=== PATIENT | male | born 1985 | race Caucasian/White ===

== ENCOUNTER 2019-10-14 15:49 | Emergency (ER) | payer BC, OTHER, SELFPAY ==
[2019-10-14 16:02] VITALS: BP 152/78; PULSE 75; RESP 16; TEMP 36.7; O2SAT 100
--- NOTE | 2019-10-14 16:08 | ED.GENADULT ---
HPI - General Adult General Chief complaint: Upper Respiratory Infection Stated complaint: Congestion/abd pain/vomiting/fever Time Seen by Provider: 10/14/19 16:08 Source: patient Mode of arrival: ambulatory Limitations: no limitations History of Present Illness HPI narrative: 34-year-old male patient presents to the [facility] with complaints of nausea vomiting for the past 2 to 3 days. Patient states his girlfriend ate some [employer] on Sunday and right afterwards able started having nausea vomiting diarrhea. Patient states that he feels much better today than he has but states he was not feeling 100% this morning and his boss sent him home and requested that he get tested for the flu because he has had an outbreak of the flu at work. Patient denies any fevers that he is aware of but states he has had some sweats the last couple of days. Patient states that his stomach is feeling much better no longer having vomiting or diarrhea. Patient states he is a smoker. Denies getting a flu shot this year. Related Data Home Medications Medication Instructions Recorded Confirmed No Home Medications 10/14/19 10/14/19 Allergies Allergy/AdvReac Type Severity Reaction Status Date / Time Penicillins Allergy Mild HIVES Verified 03/02/17 18:39 Review of Systems Review of Systems: Narrative: CONSTITUTIONAL: Denies fever, positive chills, and sweats. EYES: Denies visual changes, redness, or discharge. ENT: Denies rhinorrhea, congestion, sore throat, or otalgia. CARDIOVASCULAR: Denies chest pain, palpitations, or edema. RESPIRATORY: Denies cough or dyspnea. GASTROINTESTINAL: Denies abdominal pain, positive nausea, denies vomiting, or diarrhea. GENITOURINARY: Denies dysuria or hematuria. SKIN: Denies rash or itching. MUSCULOSKELETAL: Denies back pain, joint pain, or myalgia. NEUROLOGIC: Denies headache, numbness, or weakness. PSYCHIATRIC: Denies anxiety or depression. PMFSH Comments At the time of my signature I agree with nursing past medical history, surgical, social, and family history. There is no relevant family history pertinent to the presenting complaint. Exam Narrative: Exam Narrative: GENERAL: Well-appearing, well-nourished, and in no acute distress. HEAD: Normocephalic, atraumatic. EYES: PERRLA and EOMI. ENT: Nares clear, no rhinorrhea or epistaxis. Mucous membranes moist. Bilateral TMs are clear with no erythema or foreign bodies in the canal. Posterior pharynx with no erythema, tonsillar margin, exudates or lesions present. NECK: Supple. No lymphadenopathy CHEST: Clear to auscultation. No respiratory distress. HEART: Regular rate and rhythm. No murmur heard. Normal peripheral pulses. ABDOMEN: Soft, flat, nondistended. No guarding, rebound tenderness, or rigid. No pulsatilla masses. Bowel sounds present in all four quadrants. No organomegaly. Negative Kendrick?s sign. No periumbicial tenderness. No Supra public tenderness or distension. Good femoral pulses bilaterally. No hernia noted. No scars or surface trauma. EXTREMITIES: Normal range of motion. No edema. SKIN: Warm, dry, no rash. NEURO: No focal deficits. Alert and oriented x3. Course Reevaluation(s) Reevaluation #1: Notify patient that he is negative for influenza. Discussed with him that he can return to work with no restrictions. Discussed with him that this was most likely some type of bad food that he ate considering that both him and his girlfriend had the same symptoms. Discussed with patient that as long as he continues to keep down food and fluid this is reassuring. Discussed with patient if he develops worsening vomiting abdominal pain or super high fevers and he would need to go the ER for further evaluation and treatment. Patient verbalized understanding denies any other questions or concerns at this time. Date: 10/14/19 Time: 16:31 Vital Signs Vital signs: Vital Signs Temperature 36.7 C 10/14/19 16:02 Pulse Rate 75 10/14/19 16:02 Respiratory Ra
== END 2019-10-14 16:40 | disposition home or self-care (01) ==
PROVIDERS: Emergency Provider Nurse Practitioner Family
DX: A08.4 Viral intestinal infection, unspecified (principal); F17.200 Nicotine dependence, unspecified, uncomplicated
CPT/HCPCS: 87804; 99213; G0463

== ENCOUNTER 2019-11-06 10:47 | Emergency (ER) | payer BC, OTHER, SELFPAY ==
--- NOTE | ~2019-11-06 | XR_ITS ---
EXAMINATION: XR forearm RT 2V DATE: 11/06/2019 11:09 INDICATION: Posterior right forearm pain post fall one and a half weeks prior. TECHNIQUE: AP an lateral views of the right forearm were obtained. COMPARISON: none FINDINGS: There is soft tissue swelling with subcutaneous edema at the dorsal aspect of the proximal to mid rig ht forearm. Bone alignment is normal. No fracture. Joint spaces are normal. No right elbow joint effu david. IMPRESSION: 1. Likely contusion at the dorsal aspect of the proximal to mid forearm. No osseous abnormality. Reviewed, dictated and finalized at location A. IMPRESSION: 1. Likely contusion at the dorsal aspect of the proximal to mid forearm. No oss eous abnormality.
[2019-11-06 10:56] VITALS: BP 153/82; PULSE 88; RESP 18; TEMP 36.7; O2SAT 99
--- NOTE | 2019-11-06 11:19 | ED.GENADULT ---
HPI - General Adult General Chief complaint: Extremity Injury, Upper Stated complaint: Right arm injury Time Seen by Provider: 11/06/19 11:20 Source: patient and RN notes reviewed Mode of arrival: ambulatory Limitations: no limitations History of Present Illness HPI narrative: 34-year-old male presents with complaints of tenderness and swelling to the RIGHT forearm for the past 1.5 weeks. Ibuprofen (last at 07:30 this morning). Adam says he was walking upstairs fell and hit arm on a corner of a step. No radiation of pain. Exacerbation factor consist of movement and palpation. The relieving factor is immobility. Dominant hand is RIGHT HAND. No suspected abuse. Denies hitting head or loss of consciousness. Denies syncopal episode, dizziness, or seizure activity. Denies fever or chills. Denies nausea, vomit, and abdominal pain. Tolerating po intake well. Remains active. Some parts of this dictation were generated by voice recognition software and may contain typographical and/or grammatical inaccuracies. Related Data Home Medications Medication Instructions Recorded Confirmed No Home Medications 10/14/19 11/06/19 Allergies Allergy/AdvReac Type Severity Reaction Status Date / Time Penicillins Allergy Mild HIVES Verified 11/06/19 11:03 Review of Systems Review of Systems: Narrative: CONSTITUTIONAL: Denies fever, chills, sweats. EYES: Denies visual changes, redness, discharge. ENT: Denies rhinorrhea, congestion, sore throat, otalgia. CARDIOVASCULAR: Denies chest pain, palpitations, edema. RESPIRATORY: Denies dyspnea, wheezing, cough GASTROINTESTINAL: Denies abdominal pain, nausea, vomiting, diarrhea. GENITOURINARY: Denies dysuria, hematuria, abnormal discharge SKIN: Denies rash or itching. MUSCULOSKELETAL: Denies acute back pain or myalgia. Complains of RT forearm pain and swelling. NEUROLOGIC: Denies numbness, or focal weakness. PSYCHIATRIC: Denies anxiety or depression. All other systems reviewed are negative, except as documented in HPI and below. [facility] Past Medical History Medical History (Updated 11/14/19 @ 07:38 by ARPIT Mcnair) No significant past medical history Surgical History Surgical History (Updated 11/06/19 @ 11:50 by ARPIT Mcnair) History of adenoidectomy History of ankle surgery Right History of tonsillectomy Family History Family History (Updated 11/06/19 @ 11:50 by ARPIT Mcnair) Other No significant family history Social History Social History (Updated 11/14/19 @ 07:28 by ARPIT Mcnair) Smoking packs per day: 1 Smoking cigarettes per day: 20.0 Years smoked: 15 Smoking pack-years: 15.00 Smoking status: Current every day smoker Tobacco type: cigarettes Second hand tobacco smoke exposure: No Alcohol intake: current Alcohol use details: occasional Substance use: never Living arrangements: with family Occupation/Education: occupation Gender identity (if verbalized by the patient): Male Comments At time of signature, agree with nurse past medical, surgical, social, and family history. There is no relevant family history pertinent to the presenting complaint. Exam Narrative: Exam Narrative: GENERAL: This is a well-nourished, well-developed patient, in no apparent distress. Talks in full sentences and ambulates with steady gait without dyspnea. HEAD: normocephalic, atraumatic. EYES: PERRL. Sclera clear/white. Vision is grossly intact. NECK: Neck supple, non-tender without lymphadenopathy, masses or thyromegaly. CARDIOVASCULAR: Regular rate and rhythm without murmurs, gallops, or rubs. RESPIRATORY: Clear to auscultation. Breath sounds equal bilaterally. No wheezes, rales, or rhonchi. GASTROINTESTINAL: Abdomen soft, non-tender, nondistended. Bowel sounds are active. No hepato-splenomegaly, or palpable masses. No guarding. SKIN: warm, intact with no suspicious lesions or rash, good texture a
== END 2019-11-06 11:47 | disposition home or self-care (01) ==
PROVIDERS: Emergency Provider Nurse Practitioner Family
DX: S50.11XA Contusion of right forearm, initial encounter (principal); W10.9XXA Fall (on) (from) unspecified stairs and steps, initial encounter; S53.401A Unspecified sprain of right elbow, initial encounter
CPT/HCPCS: 73090; 99213; G0463

== ENCOUNTER 2024-11-15 08:58 | Emergency (ER) | payer OTHER, SELFPAY ==
[2024-11-15 09:04] VITALS: BP 148/96; PULSE 88; RESP 18; TEMP 36.5; O2SAT 97
--- OUTSIDE RECORDS SUMMARY | 2024-11-15 09:05 | XMS_ITS | Clinical Summary ---
Author Organization [facility] Address [address] [place] [address] Phone Care Team Providers Care Side Hemmer Name Role Phone Provider, None Primary Care Provider Unavailabl e Allergies Active Allergy Reactions Criticality Noted Date Comments Amoxicillin Rash 12/10/2017 Penicillin G Rash 12/10/2017 Medications No known medications Social History Tobacco Use Types Packs/Day Years Used Date Smoking Tobacco: Every Day Cigarettes Smokeless Tobacco: Never Alcohol Use Standard Drinks/Week Comments Yes 0 (1 standard drink = 0.6 oz pur e alcohol) Socially Sex and Gender Information Value Date Recorded Sex Assigned at Not on file Legal Sex Male 10:39 PM CDT Gender Identity Not on file Sexual Orientation Not on file Last Filed Vital Signs Vital Sign Reading Time Taken Comments Blood Pressure 137/76 12/10/2017 3:30 AM CDT Pulse 93 12/10/2017 3:26 AM CDT Temperature 37.9 C (100.3 F) 12/10/2017 3:26 AM CDT Respiratory Rate 18 12/10/2017 3:26 AM CDT Oxygen Saturation 97% 12/10/2017 3:26 AM CDT Inhaled Oxygen Concentration - - Weight 74.8 kg (165 lb) 12/10/2017 3:26 AM CDT Height 180.3 cm (5' 11 ) 12/10/2017 3:26 AM CDT Body Mass Index 23.01 12/10/2017 3:26 AM CDT Plan of Treatment Health Maintenance Due Date Last Done Comments Hepatitis C Virus (HCV) Screening 1986 TdaP Immunization 1986 Hepatitis B Immunization (1 of 3 - 19+ 3-dose series) 2005 Influenza Immunization (#1) 2024 SARS-COV-2 Immunization ( season) 2024 Respiratory Syncytial Virus (RSV) Immunization (Adult) (1 - 1-dose 75+ series) 2061 Meningococcal Immunization (ACWY) Aged Out No longer eligible based on patient's age to complete this topic Pneumococcal Immunization Combined Aged Out No longer eligible based on patient's age to complete this topic Rotavirus Immunization Aged Out No lo nger eligible based on patient's age to complete this topic Care Teams Side Hemmer Relationship Specialty Start Date End Date Provider, None [place] PCP - General 12/10/17
[2024-11-15 09:10] VITALS: BP 132/90
[2024-11-15 09:21] LABS: EDCOVIDSCREEN Positive (Negative); EDINFLUASCREEN Negative (Negative); EDINFLUBSCREEN Negative (Negative)
--- NOTE | 2024-11-15 09:26 | ED.URI ---
HPI - URI/Sore Throat General Chief Complaint: Upper Respiratory Infection Stated Complaint: Fever/Headache/Weak Time Seen by Provider: 11/15/24 09:10 Source: patient and RN notes reviewed Mode of arrival: ambulatory Limitations: no limitations History of Present Illness HPI Narrative: And patient presents today complaining fever up to 101, sweats, congestion, headache, body aches since last night. Denies cough. Has been taking Tylenol and ibuprofen with some relief. Smokes 0.75 packs per day as well as some marijuana. Denies any known sick contacts. Related Data Home Medications ?Medication ?Instructions ?Recorded ?Confirmed ?Last Taken ?Type No Home Medications 10/14/19 11/15/24 Unknown History Allergies Allergy/AdvReac Type Severity Reaction Status Date / Time Penicillins Allergy Mild HIVES Verified 11/15/24 09:21 Review of Systems Review of Systems: CONSTITUTIONAL: + body aches, chills, sweats, fever EYES: Denies visual changes, redness, or discharge. ENT: Denies rhinorrhea, sore throat, or otalgia.+ congestion CARDIOVASCULAR: Denies chest pain, palpitations, or edema. RESPIRATORY: Denies cough or dyspnea. GASTROINTESTINAL: Denies abdominal pain, nausea, vomiting, or diarrhea. GENITOURINARY: Denies dysuria or hematuria. SKIN: Denies rash, itching, or wounds. MUSCULOSKELETAL: Denies back pain, joint pain, or myalgia. NEUROLOGIC: Denies numbness, tingling, or weakness.+ headache PSYCH: Denies depression or anxiety. [facility] Past Medical History Medical History No significant past medical history Surgical History Surgical History History of ankle surgery Right History of adenoidectomy History of tonsillectomy Family History Family History Other No significant family history Social History Social History Smoking packs per day: 1 Smoking cigarettes per day: 20.0 Years smoked: 15 Smoking pack-years: 15.00 Smoking status: Current every day smoker Tobacco type: cigarettes Second hand tobacco smoke exposure: No Alcohol intake: current Alcohol use details: occasional Substance use: never Living arrangements: with family Occupation/Education: occupation Gender identity (if verbalized by the patient): Male Comments At time of signature, I have reviewed and agree with nursing past medical, surgical, social and family history unless otherwise noted. Please see nursing chart for further information. There is no relevant family history pertinent to the presenting complaint Exam Narrative: GENERAL: Mildly ill-appearing, well-nourished, and in no acute distress. HEAD: Normocephalic, atraumatic. EYES: EOMI. No redness or drainage. Conjunctivae normal. ENT: Mucous membranes pink and moist. Nares congested. No rhinorrhea. TMs normal bilaterally. Throat normal. Uvula midline. NECK: Normal AROM. Supple. No lymphadenopathy. CHEST: No respiratory distress. Clear to auscultation. HEART: Regular rate and rhythm. No murmur appreciated. EXTREMITIES: Normal range of motion. No edema. SKIN: Warm, mildly diaphoretic, no rash. Capillary refill normal. Normal skin turgor. NEURO: No focal deficits. Alert and oriented x3. Gait steady. PSYCH: Normal affect. No signs of depression or anxiety. Course Course Level of Care: Express Care Visit Vital Signs Vital signs: Vital Signs Temperature 97.7 F 11/15/24 09:04 Pulse Rate 88 11/15/24 09:04 Respiratory Rate 18 11/15/24 09:04 Blood Pressure 148/96 H 11/15/24 09:04 Pulse Oximetry 97 11/15/24 09:04 Oxygen Delivery Room Air 11/15/24 09:04 Temperature 97.7 F 11/15/24 09:04 Pulse Rate 88 11/15/24 09:04 Respiratory Rate 18 11/15/24 09:04 Blood Pressure 132/90 11/15/24 09:10 Pulse Oximetry 97 11/15/24 09:04 Oxygen Delivery Room Air 11/15/24 09:04 Reviewed MDM - URI/Sore Throat MDM Narrative Medical decision making narrative: COVID-19 positive. Discussed [id number] medication use and duration of illness. No prescription medications indicated at this time. Anticipatory guidance given. Differential Diagnosis Differential diagnosis: Likely upper respiratory infection, viral infection, influenza and other (COVID-19) Lab Data Attestation: I reviewed the patient's lab results. Labs: Lab Results 11/15/24 Range/Units 09:19 POC Influenza A Ag Negative (Negative) POC Influenza B Ag Negative (Negative) POC SARS CoV-2 Ag Positive (Negative) Critical Care Time Critical Care Time Critical Care Time: No Discharge Plan Discharge Clinical Impression: COVID-19 Patient Disposition: Home, Self-Care Condition: Stable Instructions: COVID-19 (Coronavirus Disease 2019) (ED) Additional Instructions: You have tested positive for COVID-19 today. Please take [id number] medication for symptom control such as Tylenol or ibuprofen. Rest and stay hydrated. Follow-up with your PCP in 1 week if symptoms are not improving. Go to the ER immediately if symptoms worsen to include shortness of breath, difficulty swallowing. Your blood pressure was elevated above 120/80 today at Urgent Care. This puts you above the threshold for follow up. Please schedule a followup visit with your personal physician as soon as possible, for further evaluation and treatment. Even blood pressure exceeding 120/80 may indicate pre-hypertension. Patient Language: Macedonian Prescriptions: No Action No Home Medications Follow-up/Referrals: PHYSICIAN,ATTENDANCE OFFICER [Primary Care Provider] - Stand Alone Forms: Work/School Release IP Time of Disposition: :
== END 2024-11-15 09:30 | disposition home or self-care (01) ==
PROVIDERS: Emergency Provider Nurse Practitioner
DX: U07.1 COVID-19 (principal); F17.210 Nicotine dependence, cigarettes, uncomplicated
CPT/HCPCS: 87426; 87804; 99212; G0463

== ENCOUNTER 2025-05-11 14:12 | Emergency (ER) | payer OTHER, SELFPAY ==
[2025-05-11 14:18] VITALS: BP 149/91; PULSE 87; RESP 18; TEMP 37.3; O2SAT 100
--- OUTSIDE RECORDS SUMMARY | 2025-05-11 14:27 | XMS_ITS | Clinical Summary ---
Author Organization [facility] Address [address] [place] [address] Phone Care Team Providers Care Ladle Handler Name Role Phone Provider, None Primary Care [...] 3:26 AM CDT Height 180.3 cm (5' 11) 12/10/2017 3:26 AM CDT Body Mass Index 23.01 12/10/2017 3:26 AM CDT Plan of Treatment Health Maintenance Due Date Last Done Comments Hepatitis C Virus (HCV) Screening 1986 TdaP Immunization 1986 Hepatitis B Immunization (1 of 3 - 19+ 3-dose series) 2005 Human Papillomavirus (HPV) Immunization (1 - 3-dose SCDM series) 2013 SARS-COV-2 Immunization ( season) 2024 Influenza Immunization (#1) 2025 Respiratory Syncytial Virus (RSV) Immunization (Adult) (1 - 1-dose 75+ series) 2061 Meningococcal Immunization (ACWY) Aged Out No longer eligible based on patient's age to complete this topic Pneumococcal Immunization Combined Aged Out No longer eligible based on patient's age to complete this topic Rotavirus Immunization Aged Out No lo nger eligible based on patient's age to complete this topic Care Teams Ladle Handler Relationship Specialty Start Date End Date Provider, None [place] PCP - General 12/10/17
[2025-05-11 14:45] LABS: EDUAAPPEAR Clear; EDUABILI Negative (Negative); EDUABLOOD Negative (Negative); EDUACOLOR1 Yellow; EDUAGLUCOSE Negative (Negative); EDUAKETONE Negative (Negative); EDUALEUKO Negative (Negative); EDUANITRATE Negative (Negative); EDUAPH 6.5; EDUAPROTEIN Negative (Negative); EDUASPGRAVITY 1.010; EDUAUROBILI 0.2
--- NOTE | 2025-05-11 15:05 | ED_ITS ---
HPI - Male Genitourinary General Chief complaint: Urogenital-Male Stated complaint: frequent urination/lower back pain Time Seen by Provider: 05/11/25 15:00 Source: patient and RN notes reviewed Mode of arrival: ambulatory Limitations: no limitations History of Present Illness HPI Narrative: 39-year-old male presents [facility] with multiple medical complaints. Patient 1st reports he has had urinary symptoms for approximately 5 months. Patient complains of intermittent right flank pain, increased frequency, hesitancy. Patient reports he feels like he cannot if he has bladder every time he uses the restroom. She denies any burning with urination, penile discharge, or any concerns for STIs. Patient says the flank pain seems to be worse with certain movements of his trunk. Patient denies any blood in his urine. Patient also reports over the last 4 months he has been taking this medication called Kratom to help with alcohol abuse. Patient denies any recent normal use. However patient has been increasingly using more Kratom at higher doses and starting to developed withdrawal symptoms when he stops taking it. Patient will report nausea, chills, sweats, muscle aches when he stops taking the medication. Patient last took the medication hour ago. Patient would like help getting off the medication. Patient denies any other illicit drug use. Patient has any chest pain, difficulty breathing, vomiting, abdominal pain, diarrhea, black tarry stools, fevers, body aches, chills, or any other symptoms. Related Data Home Medications ?Medication ?Instructions ?Recorded ?Confirmed ?Last Taken ?Type No Home Medications 10/14/19 11/15/24 U nknown History Allergies Allergy/AdvReac Type Severity Reaction Status Date / Time Penicillins Allergy Mild HIVES Verified 05/11/25 14:26 Review of Systems Review of Systems: CONSTITUTIONAL: Denies fever, chills, or sweats. EYES: Denies visual changes, redness, or discharge. ENT: Denies rhinorrhea, congestion, sore throat, or otalgia. CARDIOVASCULAR: Denies chest pain, palpitations, or edema. RESPIRATORY: Denies cough or dyspnea. GASTROINTESTINAL: Denies abdominal pain, nausea, vomiting, or diarrhea. GENITOURINARY: Denies dysuria or hematuria. Positive for increased frequency and hesitancy. SKIN: Denies rash or itching. MUSCULOSKELETAL: Denies back pain, joint pain, or myalgia. Positive for right flank pain. NEUROLOGIC: Denies headache, numbness, or weakness. PSYCHIATRIC: Denies anxiety or depression. All other systems reviewed are negative, except as documented in HPI. PENDING SALE TO [facility] Past Medical History Medical History No significant past medical history Surgical History Surgical History History of ankle surgery Right History of adenoidectomy History of tonsillectomy Family History Family History Other No significant family history Social History Social History Smoking packs per day: 1 Smoking cigarettes per day: 20.0 Years smoked: 15 Smoking pack-years: 15.00 Smoking status: Current every day smoker Tobacco type: cigarettes Second hand tobacco smoke exposure: No Alcohol intake: current Alcohol use details: occasional Substance use: never Living arrangements: with family Occupation/Education: occupation Gender identity (if verbalized by the patient): Male Comments At the time of my signature, I reviewed and agree with the nursing past medical, surgical, social, and family history. There is no relevant family history pertinent to the patient complaint. Exam Narrative: GENERAL: This is a well-nourished, well-developed adult, in no apparent distress. They are non ill-appearing, nontoxic appearing. HEAD: normocephalic, atraumatic. EYES: Sclera clear/white. Conjunctiva normal. Vision is grossly intact. Extraocular movements intact EARS: External ears normal, Hearing grossly intact. NOSE: External nose normal THROAT: Mucous membranes moist, NECK: Neck supple, CARDIOVASCULAR: Regular rate and rhythm without murmurs, gallops, or rubs. RESPIRATORY: Clear to auscultation. Breath sounds equal bilaterally. No wheezes, rales, or rhonchi. GASTROINTESTINAL: Abdomen soft, non-tender, nondistended. Bowel sounds are active. No hepato-splenomegaly, or palpable masses. No guarding or rigidity. No rebound tenderness. SKIN: warm, Dry, intact with no suspicious lesions or rash, good texture and tu rgor. NEURO: awake, alert, and oriented to person, place and time. There were no obvious focal neurologic abnormalities. EXTREMITIES: No joint tenderness, effusion, or edema noted. BACK: Nontender without deformity. No CVA tenderness. Course Course Emergency Course: Portions of this record may have been created with voice recognition software Level of Care: Express Care Visit Vital Signs Vital signs: Vital Signs Temperature 99.2 F 05/11/25 14:18 Pulse Rate 87 05/11/25 14:18 Respiratory Rate 18 05/11/25 14:18 Blood Pressure 149/91 H 05/11/25 14:18 Pulse Oximetry 100 05/11/25 14:18 Oxygen Delivery Room Air 05/11/25 14:18 Temperature 99.2 F 05/11/25 14:18 Pulse Rate 87 05/11/25 14:18 Respiratory Rate 18 05/11/25 14:18 Blood Pressure 149/91 H 05/11/25 14:18 Pulse Oximetry 100 05/11/25 14:18 Oxygen Delivery Room Air 05/11/25 14:18 Reviewed MDM - Male Genitourinary MDM Narrative Medical decision making narrative: Urine dipstick negative for any evidence of infection or blood in the urine. Urine cultures pending. No CVA tenderness. No Abdominal tenderness. No peritoneal findings. Symptoms not appear to be consistent with urinary tract infection or kidney stone. Symptoms could be related to prostate. Flank pain could be related to muscle skeletal. Informed patient will be unable to help with his withdrawal process from this medication he has been taking. Patient is given information for warm hand off program at [facility] that may be able to help with drug rehab. Discussed with the patient obtaining KUB for his flank pain discussed how this may or may not show a kidney stone but does not mean that he does not have a kidney stone or to go to the ER for more comprehensive workup for his symptoms which would include but not limited to lab work and advanced imaging. patient declined x-ray at this time and said he would not want to go to the ER right now but will likely go to the ER later this evening or tomorrow on his own free will. Patient's vital signs are stable, as he hemodynamically stable, tachycardia, patient afebrile. Patient is nontoxic appearing in no apparent distress. Patient is not a primary care provider, he was given a referral to the on-call provider along with a list to get established with a primary care provider. Advised patient if symptoms get worse any point to the ER immediately specific develops worsening pain, fevers, nausea, vomiting, chest pain, breathing problems, or any serious concerns. Discussed physical exam findings. Advised supportive measures and signs/symptoms to go to the ER. Pt is appropriate for outpt treatment and f/u. Differential Diagnosis Differential diagnosis: Likely urinary tract infection, acute retention of urine and other (STD, prostatitis, BPH, renal stone, muscles skeletal injury, drug withdrawal) Lab Data Attestation: I reviewed the patient's lab results. Labs: Lab Results 05/11/25 Range/Units 14:36 POC Urine Color Yellow POC Urine Clarity Clear POC Urine pH 6.5 POC Ur Specif [place] 1.010 POC Urine Protein Negative (Negative) POC Ur Glucose (UA) Negative (Negative) POC Urine Ketones Negative (Negative) POC Urine Blood Negative (Negative) POC Urine Nitrite Negative (Negative) POC Urine Bilirubin Negative (Negative) POC Urine Urobilinogen 0.2 POC U Leukocyte Esteras Negative (Negative) Critical Care Time Critical Care Time Critical Care Time: No Discharge Plan Discharge Clinical Impression: Increased urinary frequency, Drug dependence Patient Disposition: Home Condition: Stable Instructions: Urinary Urgency and Frequency (DC) Additional Instructions: Your urine dipstick was negative for any signs of infection. Urine culture will be sent off and if it is positive for any bacteria you will be contacted started on appropriate antibiotics. Please follow-up with your PCP in 3-5 days for further evaluation management of your urinary symptoms. Please call [facility] warm hand off program to discuss options about drug withdrawal from the medication you have been taking. You may call them at [phone]. Please go to the ER if you develop worsening symptoms, abdominal pain, nausea, vomiting, fevers, burning with urination, chest pain, breathing problems, or any serious concerns. Patient Language: Maori Prescriptions: No Action No Home Medications Follow-up/Referrals: Juan Snyder MD [Physician, Family Practice] - 3 Days PHYSICIAN,UTILITY LOCATE TECHNICIAN [Primary Care Provider, Internal Medicine] Time of Disposition: 15:03
== END 2025-05-11 15:05 | disposition home or self-care (01) ==
DX: R35.0 Frequency of micturition (principal); F19.20 Other psychoactive substance dependence, uncomplicated; F17.210 Nicotine dependence, cigarettes, uncomplicated
CPT/HCPCS: 81003; 87086; 99213; G0463